=== PATIENT | male | born 1990 | race Caucasian/White ===

== ENCOUNTER 2022-05-30 16:46 | Inpatient (IN) | payer OTHER ==
[~2022-05-30] VITALS: Ht 180.3 cm; Wt 89.5 kg
[2022-05-30] MEDS ORDERED: LORAZEPAM INJ 2 MG/ML VIAL ONE ×3 (17:13→18:07)
--- NOTE | 2022-05-30 17:18 | NUR ---
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 PER REPORT, PT INGESTED UNKNOWN QUANTITY OF POSSIBLE "METHAMPETHAMINES" WHILW BEING ARRESTED. ABRASSIONS NOTED TO R SIDED CHEST AND FLANK AREA, PT IS VERBALLY RESPONSIVE. GOWNED AND PLACED ON MONITOR.
--- NOTE | 2022-05-30 17:20 | NUR ---
Pt Escorted by [employer] in Handcuffs Appears highly Anxious/gets easily agitated/restless/sweating. Skin color flushed. Tends to hyperventilate at times. MD at bedside on arrival with orders
[2022-05-30 17:22] LABS: BASOPHILS % (AUTO) 0.2 % (0.0-2.0); EOSINOPHILS % (AUTO) 0.1 % (0.0-6.0); HEMATOCRIT 46 % (39-51); LYMPHOCYTES # (AUTO) 1.9 K/uL (0.8-4.8); LYMPHOCYTES % (AUTO) 10.2 % (20.0-44.0); MEAN CORPUSCULAR HGB CONC 35 g/dl (31.0-36.0); MEAN CORPUSCULAR VOLUME 86 fL (80-96); MONOCYTES # (AUTO) 0.9 K/uL (0.1-1.30); MONOCYTES % (AUTO) 4.7 % (2.0-12.0); NEUTROPHILS # (AUTO) 15.8 K/uL (1.8-8.9); NEUTROPHILS % (AUTO) 84.8 % (43.0-81.0); PLATELET COUNT (AUTO) 342 K/uL (150-450); RED BLOOD CELL COUNT(AUTO) 5.34 MIL/uL (4.5-6.0); WHITE BLOOD COUNT (AUTO) 18.6 K/uL (4.3-11.0)
[2022-05-30] MEDS ORDERED: TDAP [DIPH/PERTUSSIS/TET] 0.5 ML VIAL IM ONE (17:30)
[2022-05-30] MEDS ORDERED: LORAZEPAM INJ 2 MG/ML VIAL IV ONE ×3 (17:30→18:30)
[2022-05-30] MEDS ORDERED: IV NS 0.9% 1,000 ML BAG IV ONE ×2 (17:30→18:30)
--- NOTE | 2022-05-30 17:32 | NUR ---
GISELA HUNT "was running away from police ingested a bag of meth"
[2022-05-30] MEDS ORDERED: BENZOIN COMPOUND TINCT 60 ML BOTTLE ONE (17:38)
--- NOTE | 2022-05-30 17:38 | NUR ---
PT IS NOTED W UNCONTROLLED GENERALIZED BODY TREMORS, TACHYCARDIC IN THE 140'S DR CHAMBERLAIN MADE AWARE. ATIVAN 2MG IVP GIVEN PER ERMD VERBAL ORDER.
[2022-05-30 17:41] LABS: ALANINE AMINOTRANSFERASE 34 U/L (12-78); ALBUMIN 4.2 g/dL (3.4-5.0); ALCOHOL, BLOOD < 3 mg/dL (0-0); ALKALINE PHOSPHATASE 93 U/L (46-116); ASPARTATE AMINOTRANSFERASE 40 U/L (15-37); BILIRUBIN,DIRECT 0.2 mg/dL (0.0-0.2); BILIRUBIN,TOTAL 0.6 mg/dL (0.2-1.0); CALCIUM, SERUM 9.4 mg/dL (8.5-10.1); CARBON DIOXIDE 26 mmol/L (21-32); CHLORIDE 106 mmol/L (98-107); CREATININE 1.5 mg/dL (0.6-1.3); GLUCOSE 103 mg/dL (74-106); POTASSIUM 3.7 mmol/L (3.5-5.1); SODIUM SERUM 145 mmol/L (136-145); TOTAL PROTEIN, SERUM 7.8 g/dL (6.4-8.2); UREA NITROGEN, BLOOD 9 mg/dL (7-18)
[2022-05-30 17:44] LABS: ACETAMINOPHEN < 10 ug/ml (10-30)
--- NOTE | 2022-05-30 18:00 | NUR ---
Patient became altered and unable to respond to verbal/painful stimuli. Obtunded. Dr Hector made aware with orders to prepare for RSI
[2022-05-30] MEDS ORDERED: PROPOFOL 100 ML ONE ×2 (18:04→21:23)
--- NOTE | 2022-05-30 18:20 | NUR ---
started propofol post intubation at right AC 16g at the rate of 5/mcg/kg/min titrated to effect.
--- NOTE | 2022-05-30 18:20 | NUR ---
PT ENDORSED TO [facility] FOR [facility]HAEL.
--- NOTE | 2022-05-30 18:24 | NUR ---
CALLED POISON CONTROL [phone] PER [facility]: CT OF ABDOMIN & PELVIC IF BAGGIE FOUND DO ACTIVATED CHARCOAL. IF NO BAGGIE, CONTINUE SUPPORTIVE CARE. PLACE SEIZURE PRECAUTION IN PLACE. IN UNLIKELY EVENT OF HYPERTHERMIA USE COOLING MEASSURE. CHECK CK FOR RHABDO. ALSO, DO LABS FOR TYLENOL & ASA.
--- NOTE | 2022-05-30 18:27 | NUR ---
COVID SWAB DONE AND SENT TO LAB
--- NOTE | 2022-05-30 18:27 | NUR ---
RT Pt intubated in ER #5 by MD Hector, with 7.5 ETT- 25cm @ Lip. Settings provided by MD- tolerating well. ETT placement verified via X-Ray + Bilateral breath sounds. Ambu bag at bedside. 1 hr post intubation ABG scheduled @1930. Will continue to monitor.
[2022-05-30 18:28] LABS: CREATINE KINASE, TOTAL 674 U/L (39-308)
[2022-05-30] MEDS ORDERED: ROCURONIUM BROMIDE 100 MG/10 ML VIAL IV ONE (18:30)
[2022-05-30] MEDS ORDERED: ETOMIDATE 2 MG/ML VIAL IV ONE ×2 (18:30→19:47)
--- NOTE | 2022-05-30 18:30 | NUR ---
dixon catheter placed asseptically, secured .
[2022-05-30] MEDS ORDERED: PROPOFOL 1,000 MG/100 ML BOTTLE IV ONE (19:00)
--- NOTE | 2022-05-30 19:04 | NUR ---
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
--- NOTE | 2022-05-30 19:35 | NUR ---
PT TO CT ON [place] WITH RN AND RT AT BEDSIDE
[2022-05-30 19:40] LABS: BILIRUBIN,URINE 1+ (NEGATIVE); COLOR,URINE YELLOW (YELLOW); LEUKOCYTE ESTERASE ,URINE NEGATIVE (NEGATIVE); NITRITE, URINE NEGATIVE (NEGATIVE); PROTEIN,URINE 1+ mg/dl (NEGATIVE); UGLUCOSE NEGATIVE (NEGATIVE)
[2022-05-30] MEDS ORDERED: ROCURONIUM BROMIDE 50 MG/5 ML IV ONE (19:47)
[2022-05-30] MEDS ORDERED: VECURONIUM 10 MG VIAL IV ONE (19:47)
--- NOTE | 2022-05-30 20:00 | NUR ---
PATIENT STARTS MOVING- AWAKE ABOVE PROPOFOL INF. INCREASED- TITRATED TO EFFECT BP-135/83 NE-106 SATS-100%
[2022-05-30 20:14] LABS: BACTERIA,URINE RARE /HPF (None Seen); RBC,URINE 0-2 /HPF (0-2); SPERM,URINE Few /HPF (None Seen); SQUAMOUS EPITHELIAL CELL,UR 0-2 /HPF (None Seen)
[2022-05-30 20:17] LABS: ABG PCO2 41.2 mmHg (35.0-45.0); ABG PO2 397.2 mmHg (75.0-100.0); COHb 0.2 % (0.5-1.5); MetHb 0.2 % (0.0-1.5); O2Hb 98.9 % (94.0-97.0); PEEP,BG 5 cm H2O; SITE, ABG Left Radial; VENT MODE, BG AC 20 500 100% +5; VT, ABG 500 mL
--- NOTE | 2022-05-30 20:20 | NUR ---
RT NOTE LATE ENTRY ABG taken and results given to MD. Fio2 titrated to 50% per md request. Addendum: 05/30/22 at 2350 by SALLY MACIAS RT Amended: Links added.
--- NOTE | 2022-05-30 21:19 | NUR ---
REPORT GIVEN TO [facility] ROOM 256-ICU FOR MICHAEL
[2022-05-30] MEDS ORDERED: ONDANSETRON HCL/PF 4 MG/2 ML VIAL IVP PRN (22:00)
[2022-05-30] MEDS ORDERED: PROPOFOL 100 ML IV PRN (22:00)
[2022-05-30] MEDS ORDERED: ACETAMINOPHEN 650 MG/SUPP.RECT RC PRN (22:00)
--- NOTE | 2022-05-30 22:00 | NUR ---
RT NOTE FIO2 TITRATED TO 40% FIO2 Addendum: 05/30/22 at 2350 by SALLY MACIAS RT Amended: Links added.
[2022-05-30 22:07] VITALS: BP 129/81
[2022-05-30 22:10] VITALS: BP 129/81
[2022-05-30] MEDS ORDERED: VANCOMYCIN 1 GM VIAL ONE (22:34)
[2022-05-30] MEDS ORDERED: PIPERACILLIN /TAZOBACTAM 3.375 G VIAL IV ONE (22:34)
[2022-05-30] MEDS: IV NS 0.9% 1,000 ML IV PRN (22:38)
[2022-05-30] MEDS: PROPOFOL 100 ML IV PRN ×2 (22:44→23:43)
[2022-05-30] MEDS: ZOSYN IVPB 3.375 G in IV D5W 50ml IV SCH (22:45)
[2022-05-30] MEDS: ENOXAPARIN SODIUM 40 MG/0.4 ML DISP.SYRIN SQ SCH (22:47)
[2022-05-30 23:00] VITALS: BP 128/80
[2022-05-30] MEDS ORDERED: VANCOMYCIN 1.5 GM in IV D5W 500ml IV ONE (23:00)
--- NOTE | 2022-05-30 23:23 | NUR ---
ICU/RN: SPOKE WITH POISON CONTROL GIVEN UPDATE. NO NEW RECOMMENDATIONS.
--- NOTE | 2022-05-30 23:58 | NUR ---
MED NOTE: PER BANK CASHIER ED TDAP TO BE ENDORSED TO AM SHIFT.
[2022-05-31] VITALS (24 sets, daily range): BP systolic 106–125; BP diastolic 63–85
[2022-05-31] MEDS: PROPOFOL 100 ML IV PRN ×14 (01:41→23:11)
[2022-05-31] MEDS ORDERED: PIPERACILLIN /TAZOBACTAM 3.375 G VIAL IV ONE (03:26)
[2022-05-31] MEDS: ZOSYN IVPB 3.375 G in IV D5W 50ml IV SCH (03:54)
[2022-05-31 05:06] LABS: BASOPHILS % (AUTO) 0.1 % (0.0-2.0); EOSINOPHILS % (AUTO) 0.1 % (0.0-6.0); HEMATOCRIT 40 % (39-51); HEMOGLOBIN 14.1 g/dL (13.5-17.5); LYMPHOCYTES # (AUTO) 2.2 K/uL (0.8-4.8); MEAN CORPUSCULAR HGB CONC 35 g/dl (31.0-36.0); MEAN CORPUSCULAR VOLUME 87 fL (80-96); MONOCYTES # (AUTO) 0.7 K/uL (0.1-1.30); MONOCYTES % (AUTO) 8.2 % (2.0-12.0); NEUTROPHILS # (AUTO) 5.9 K/uL (1.8-8.9); NEUTROPHILS % (AUTO) 66.6 % (43.0-81.0); PLATELET COUNT (AUTO) 223 K/uL (150-450); RED BLOOD CELL COUNT(AUTO) 4.63 MIL/uL (4.5-6.0); WHITE BLOOD COUNT (AUTO) 8.9 K/uL (4.3-11.0)
[2022-05-31 05:30] LABS: CALCIUM, SERUM 8.1 mg/dL (8.5-10.1); CARBON DIOXIDE 24 mmol/L (21-32); CHLORIDE 109 mmol/L (98-107); GLUCOSE 84 mg/dL (74-106); MAGNESIUM 2.5 mg/dL (1.8-2.4); PHOSPHORUS 3.7 mg/dL (2.5-4.9); POTASSIUM 3.3 mmol/L (3.5-5.1); SODIUM SERUM 142 mmol/L (136-145); UREA NITROGEN, BLOOD 8 mg/dL (7-18)
[2022-05-31 05:53] LABS: CHOLESTEROL 101 mg/dL (<200); HDL CHOLESTEROL 29 mg/dL (40-60); LDL 63 mg/dL (0-99); TRIGLYCERIDES 107 mg/dL (30-150)
[2022-05-31 06:06] LABS: CREATINE KINASE, TOTAL > 1000 U/L (39-308)
[2022-05-31] MEDS: IV NS 0.9% 1,000 ML IV PRN ×4 (07:22→22:42)
--- NOTE | 2022-05-31 07:30 | NUR ---
RN OPENING NOTE PT OBSERVED IN BED. PT IS SEDATED AT THIS TIME WITH 100MCG/HR OF DIPRIVAN AND ON MECHANICAL VENT WITH ALL PRESCRIBED SETTINGS TOLERATING WELL WITH NO SIGNS OF LABORED BREATHING OR DISTRESS O2 SAT 97%. IV ACCESS DARI MIDLINE AND RFA 18G INFUSING WITH DIPRIVAN @100MCG AND NS @125ML/HR. FC IS IN PLACE DRAINING URINE TO GRAVITY. PT IS NPO AT THIS TIME. PT HAS BL SOFT WRIST RESTRAINTS. BED IS LOCKED IN LOWEST POSITION X 2 BED RAILS UP AND ALL SAFETY PRECAUTIONS ARE IN PLACE. WILL CONTINUE TO MONITOR THIS SHIFT.
[2022-05-31] MEDS ORDERED: VANCOMYCIN 1.25 GM in IV D5W 250 ML IV SCH (08:00)
[2022-05-31] MEDS ORDERED: IV NS 0.9% 250 ML IV PRN (08:00)
[2022-05-31] MEDS: PANTOPRAZOLE 40 MG VIAL IV SCH (08:04)
[2022-05-31 08:39] LABS: ABG BASE EXCESS -3.3 mmol/L; ABG OXYGEN SATURATION 97.9 % (92.0-98.5); ABG PCO2 31.7 mmHg (35.0-45.0); ABG PO2 118.4 mmHg (75.0-100.0); AaDO2 58.3 mmHg; COHb 0.3 % (0.5-1.5); MetHb 0.2 % (0.0-1.5); O2Hb 97.4 % (94.0-97.0); PEEP,BG 5 cm H2O; SITE, ABG Right Femoral; VENT MODE, BG AC 20 500 30% +5; VT, ABG 500 mL
[2022-05-31] MEDS: POTASSIUM CL. PREMIX PERIPHER. 50 ML IV SCH ×2 (12:24→14:05)
[2022-05-31] MEDS ORDERED: PIPERACILLIN /TAZOBACTAM 3.375 G in IV D5W 100 ML IV SCH (13:00)
--- NOTE | 2022-05-31 17:15 | NUR ---
RN NOTE HANDOFF GIVEN TO CHLOÉ NICOLE.
--- NOTE | 2022-05-31 19:12 | NUR ---
HAND OFF REPORT GIVEN TO VICTORIANO TOPETE
[2022-05-31] MEDS: ENOXAPARIN SODIUM 40 MG/0.4 ML DISP.SYRIN SQ SCH (20:43)
--- NOTE | 2022-05-31 21:30 | NUR ---
ICU/GRADUATE RECRUITER POISION CONTROL CALLED TO GET AN UPDATE ABOUT THIS PT, SPOKE TO HANY. ASKED WHEN WE PLAN TO EXTUBATE THIS . GAVE ALL INFORMATION. NO NEW ORDERS.
[2022-06-01] VITALS (12 sets, daily range): BP systolic 113–138; BP diastolic 72–90
[2022-06-01] MEDS: PROPOFOL 100 ML IV PRN ×5 (01:00→07:24)
[2022-06-01] MEDS: IV NS 0.9% 1,000 ML IV PRN ×2 (03:30→09:39)
[2022-06-01 05:55] LABS: CALCIUM, SERUM 7.8 mg/dL (8.5-10.1); CREATININE 0.9 mg/dL (0.6-1.3); PHOSPHORUS 2.7 mg/dL (2.5-4.9); POTASSIUM 3.4 mmol/L (3.5-5.1)
[2022-06-01 06:13] LABS: BASOPHILS % (AUTO) 0.2 % (0.0-2.0); EOSINOPHILS % (AUTO) 0.4 % (0.0-6.0); HEMATOCRIT 39 % (39-51); HEMOGLOBIN 13.3 g/dL (13.5-17.5); LYMPHOCYTES # (AUTO) 1.5 K/uL (0.8-4.8); LYMPHOCYTES % (AUTO) 19.1 % (20.0-44.0); MEAN CORPUSCULAR HGB CONC 34 g/dl (31.0-36.0); MEAN CORPUSCULAR VOLUME 87 fL (80-96); MONOCYTES # (AUTO) 0.5 K/uL (0.1-1.30); MONOCYTES % (AUTO) 6.2 % (2.0-12.0); NEUTROPHILS # (AUTO) 5.8 K/uL (1.8-8.9); NEUTROPHILS % (AUTO) 74.1 % (43.0-81.0); PLATELET COUNT (AUTO) 196 K/uL (150-450); RED BLOOD CELL COUNT(AUTO) 4.44 MIL/uL (4.5-6.0); WHITE BLOOD COUNT (AUTO) 7.8 K/uL (4.3-11.0)
--- NOTE | 2022-06-01 07:29 | NUR ---
RN OPENING NOTE PT OBSERVED IN BED. PT IS SEDATED AT THIS TIME WITH 100MCG/HR OF DIPRIVAN AND ON MECHANICAL VENT WITH ALL PRESCRIBED SETTINGS TOLERATING WELL WITH NO SIGNS OF LABORED BREATHING OR DISTRESS O2 SAT 100%. IV ACCESS DARI MIDLINE AND RFA 18G INFUSING WITH DIPRIVAN @100MCG AND NS @150ML/HR. FC IS IN PLACE DRAINING URINE TO GRAVITY. PT IS NPO AT THIS TIME. PT HAS BL SOFT WRIST RESTRAINTS. BED IS LOCKED IN LOWEST POSITION X 2 BED RAILS UP AND ALL SAFETY PRECAUTIONS ARE IN PLACE. WILL CONTINUE TO MONITOR THIS SHIFT.
--- NOTE | 2022-06-01 09:00 | NUR ---
RN NOTE: FRANK MARIE WEENED AND HELD PER MD PER PROTOCOL. WILL CONTINUE TO MONITOR.
[2022-06-01] MEDS: PANTOPRAZOLE 40 MG VIAL IV SCH (09:22)
[2022-06-01] MEDS ORDERED: DC PROPOFOL WHEN EXTUBATED XX PRN (11:00)
[2022-06-01] MEDS: POTASSIUM CL. PREMIX PERIPHER. 50 ML IV SCH ×2 (11:00→11:39)
--- NOTE | 2022-06-01 11:00 | NUR ---
RN NOTE: EXTUBATION PT ABLE TO FOLLOW SIMPLE COMMANDS AFTER BEING WEENED FROM DIPRIVAN. PT EXTUBATED AT THIS TIME AND IS STABLE. PT NOT ABLE TO SPEAK CLEAR AND COMPLETE SENTENCES. WILL CONTINUE TO MONITOR.
--- NOTE | 2022-06-01 11:00 | NUR ---
RT PER DR TREVIZO PATIENT WAS WEANED AND EXTUBATED. PATIENT RESPONDING TO VERBAL COMMANDS. NO SOB, ON ROOM. CHLOÉ ELMORE AWARE. Addendum: 06/01/22 at 1129 by VALERY LANGSTON RT Amended: Links added.
--- NOTE | 2022-06-01 14:33 | NUR ---
RN NOTE: PT AMA PT HAS BEEN ABLE TO SPEAK AND COMPLETE SENTENCES. ASSESSED PT FOR IMPROVED STEADY GAIT. PT GAIT HAS IMPROVED. PT STATED MULTIPLE TIMES THAT HE WANTS TO LEAVE AMA AND REFUSES TO SIGN AMA FORM. PT HAS BECOME PHYSICALLY AND VERBALLY AGGRESSIVE DESPITE VERBAL REDIRECTION FROM THIS NURSE AND STAFF. LIANA RAO WAS CALLED AND PT REGROUPED FOR SHORT TIME. PT DOES NOT STATE INTENTIONS OF HURTING HIMSELF OR STAFF IN HOSPITAL. PT'S GAIT AND BALANCE CONTINUED TO IMPROVE AND WAS ESCORTED OUT OF HOSPITAL BY THIS NURSE AND CHARGE NURSE.
--- NOTE | 2022-06-02 10:28 | NUR ---
SW received consult over the weekend for substance abuse, however, pt. has departed.
== END 2022-06-01 14:30 | disposition left against medical advice (07) | DRG 917 ==
LOC: ER 16:48 → ICU 20:25
PROVIDERS: ADMIT Nurse Practitioner Acute Care; ATTEND Student in an Organized Health Care Education/Training Program
PROC: 5A1945Z Respiratory Ventilation, 24-96 Consecutive Hours (ICD-10-PCS; principal; 2022-05-30)
PROC: 0BH17EZ Insertion of Endotracheal Airway into Trachea, Via Natural or Artificial Opening (ICD-10-PCS; 2022-05-30)
DX: T43.622A Poisoning by amphetamines, intentional self-harm, initial encounter (principal); G92.8 Other toxic encephalopathy; J69.0 Pneumonitis due to inhalation of food and vomit; J96.01 Acute respiratory failure with hypoxia; N17.0 Acute kidney failure with tubular necrosis; M62.82 Rhabdomyolysis; E87.20 Acidosis, unspecified; Y92.9 Unspecified place or not applicable; Z53.29 Procedure and treatment not carried out because of patient's decision for other reasons; F90.9 Attention-deficit hyperactivity disorder, unspecified type; Z88.5 Allergy status to narcotic agent; Z88.0 Allergy status to penicillin; Z88.8 Allergy status to other drugs, medicaments and biological substances; F29 Unspecified psychosis not due to a substance or known physiological condition; R45.1 Restlessness and agitation
CPT/HCPCS: 31720; 36415; 36600; 70450-TC; 71045-TC; 80048-TC; 80061-TC; 80076-TC; 81001; 82550-TC; 82553; 82803-TC; 83605-TC; 83735-TC; 84100-TC; 84484-TC; 85025-TC; 86706; 86803; 87081-TC; 87340; 87806; 90715; 94002-TC; 94003-TC; 94799-TC; 99082-TC; C9113; G0378; G0480; J1650; J2060; J2543; J3370; J3480; J3490; J7030; J7050; J7060

== ENCOUNTER 2025-04-14 09:34 | Emergency (ER) | payer OTHER ==
[~2025-04-14] VITALS: Ht 182.9 cm; Wt 75.3 kg
[2025-04-14] MEDS ORDERED: ONDANSETRON 4 MG TAB.RAPDIS ONE (10:04)
[2025-04-14] MEDS: ONDANSETRON 4 MG TAB.RAPDIS SL ONE (10:07)
[2025-04-14 10:09] VITALS: BP 111/69; TEMP 98; O2SAT 97
== END 2025-04-14 10:05 ==
LOC: ER 09:38
DX: F11.20 Opioid dependence, uncomplicated (principal); F17.200 Nicotine dependence, unspecified, uncomplicated; F99 Mental disorder, not otherwise specified; Z88.0 Allergy status to penicillin; Z88.5 Allergy status to narcotic agent
CPT/HCPCS: 99283; Q0162